=== PATIENT | male | born 1955 | race Caucasian/White ===

== ENCOUNTER 2025-08-23 18:33 | Emergency (ER) | payer MEDICARE, BC ==
[2025-08-23] MEDS: Lidocaine 2% with EPINEPHrine 1:100,000 20 ML MDV INJECT ONE (19:09)
[2025-08-23] MEDS: Diphtheria,Pertussis(Acell),Tetanus Vaccine 0.5 ML Syringe IM ONE (19:57)
== END 2025-08-23 20:12 | disposition home or self-care (01) ==
LOC: KA.ED 18:33
DX: S81.812A Laceration without foreign body, left lower leg, initial encounter (principal); Z23 Encounter for immunization; W18.40XA Slipping, tripping and stumbling without falling, unspecified, initial encounter
CPT/HCPCS: 12004; 90471; 90715; 99282; A9270; J2004